=== PATIENT | male | born 1960 | race Caucasian/White ===

== ENCOUNTER 2018-10-23 21:16 | Outpatient (REF) | payer MEDICARE, SELFPAY ==
[2018-10-23 21:41] LABS: Anion Gap 6.9 mmol/L (3-11); BUN 21 mg/dL (7-18); CO2 29.1 mmol/L (21.0-32.0); CREATININE 0.99 mg/dL (0.70-1.30); Calcium 9.1 mg/dL (8.5-10.1); Chloride 105 mmol/L (98-107); Glucose 113 mg/dL (70-100); Potassium 5.1 mmol/L (3.5-5.1); Sodium 141 mmol/L (136-145)
== END 2018-10-23 21:36 ==
LOC: NCHCN 21:16
PROVIDERS: PCP Family Medicine; Visit Provider Family Medicine
DX: I10 Essential (primary) hypertension (principal)
CPT/HCPCS: 80048

== ENCOUNTER 2019-06-12 20:45 | Outpatient (REF) | payer MEDICARE, SELFPAY ==
[2019-06-16 07:10] LABS: O-desmethyltramadol 5974 ng/mL (Cutoff:25)
[2019-06-17 11:27] LABS: Fentanyl Interpretation Positive.; Fentanyl by LC-MS/MS 23.4 ng/mL; Norfentanyl by LC-MS/MS 383.5 ng/mL
== END 2019-06-12 21:05 ==
LOC: NCHCN 20:45
PROVIDERS: PCP Family Medicine; Visit Provider Family Medicine
DX: F11.20 Opioid dependence, uncomplicated (principal)
CPT/HCPCS: 80373; 80354

== ENCOUNTER 2021-02-20 21:57 | Outpatient (REF) | payer MEDICARE, SELFPAY ==
[2021-02-20 22:01] LABS: HCT 37.9 % (40.0-50.0); HGB 11.5 g/dL (13.5-17.5); MCH 24.6 pg (27.0-33.0); MCHC 30.3 % (32.0-36.0); RBC 4.68 10^6/uL (4.36-5.78); RDW 18.8 % (11.8-14.1); RDW-SD 56.3 fL; WBC 4.75 10^3/uL (4.4-10.8)
[2021-02-20 22:18] LABS: ALT 161 U/L (16-63); AST 129 U/L (15-37); Albumin 3.3 g/dL (3.4-5.0); Alkaline Phosphatase 135 U/L (46-116); Anion Gap 6.8 mmol/L (3-11); BUN 17 mg/dL (7-18); Bilirubin, Total 0.5 mg/dL (0.2-1.0); CO2 28.2 mmol/L (21.0-32.0); CREATININE 1.2 mg/dL (0.70-1.30); Calcium 8.6 mg/dL (8.5-10.1); Chloride 105 mmol/L (98-107); Glucose 107 mg/dL (74-106); Potassium 4.1 mmol/L (3.5-5.1); Sodium 140 mmol/L (136-145); TSH (W/Ref FT4) 3.18 uIU/mL (0.36-3.74); Total Protein 7.8 g/dL (6.4-8.2)
== END 2021-02-20 21:58 | disposition home or self-care (01) ==
LOC: NCHCN 21:57
PROVIDERS: PCP Family Medicine; Visit Provider Nurse Practitioner Family
DX: R00.2 Palpitations (principal)
CPT/HCPCS: 80053; 85027; 83735; 84443

== ENCOUNTER 2021-02-23 22:23 | Outpatient (REF) | payer MEDICARE, SELFPAY ==
[2021-02-27 11:11] LABS: Lyme Ab w Rflx to Lyme Confirm Negative (Negative)
[2021-02-28 13:57] LABS: Anaplasma phagocytophilum Negative (Negative); B. miyamotoi PCR Negative (Negative); Babesia divergens/MO-1 Negative (Negative); Babesia duncani Negative (Negative); Babesia microti Negative (Negative); Ehrlichia chaffeensis Negative (Negative); Ehrlichia ewingii/canis Negative (Negative); Ehrlichia muris eauclairensis Negative (Negative)
== END 2021-02-23 22:24 | disposition home or self-care (01) ==
LOC: NCHCN 22:23
PROVIDERS: PCP Family Medicine; Visit Provider Family Medicine
DX: R79.89 Other specified abnormal findings of blood chemistry (principal); D64.9 Anemia, unspecified
CPT/HCPCS: 87798; 86618

== ENCOUNTER 2021-12-26 10:34 | Outpatient (REF) | payer MEDICARE, SELFPAY ==
[2021-12-26 14:56] LABS: HCT 35.1 % (40.0-50.0); HGB 11.5 g/dL (13.5-17.5); MCHC 32.8 % (32.0-36.0); MCV 89 fL (80-95); MPV 11.5 fL (8.0-11.0); RBC 3.96 10^6/uL (4.36-5.78); RDW 15.9 % (11.8-14.1); RDW-SD 52.6 fL; WBC 3.88 10^3/uL (4.4-10.8)
[2021-12-26 15:16] LABS: Platelet Count 102 10^3/uL (130-400)
[2021-12-26 15:51] LABS: ALT 212 U/L (16-63); AST 200 U/L (15-37); Alkaline Phosphatase 154 U/L (46-116); Bilirubin, Direct 0.2 mg/dL (0.0-0.2); Bilirubin, Total 0.5 mg/dL (0.2-1.0); Total Protein 7.3 g/dL (6.4-8.2)
== END 2021-12-26 10:35 | disposition home or self-care (01) ==
LOC: NCHCN 10:34
PROVIDERS: PCP Family Medicine; Visit Provider Family Medicine
DX: D64.9 Anemia, unspecified (principal); R79.89 Other specified abnormal findings of blood chemistry; R00.8 Other abnormalities of heart beat
CPT/HCPCS: 80076; 85027

== ENCOUNTER 2022-01-01 16:36 | Outpatient (REF) | payer MEDICARE, SELFPAY ==
[2022-01-01 16:36] LABS: Abs Immature Grans 0.01 10^3/uL (0.0-0.06); Absolute Basophil Count 0.05 10^3/uL (0.0-0.2); Absolute Eosinophil Count 0.26 10^3/uL (0.0-0.7); Absolute Lymphocyte Count 1.06 10^3/uL (1.2-3.4); Absolute Monocyte Count 0.46 10^3/uL (0.1-0.8); Absolute Neutrophil Count 2.78 10^3/uL (1.2-6.7); Basophils % 1.1; Eosinophils % 5.6; HCT 40.8 % (40.0-50.0); HGB 13.2 g/dL (13.5-17.5); Immature Grans % 0.2; Lymphocytes % 22.9; MCH 28.9 pg (27.0-33.0); MCHC 32.4 % (32.0-36.0); MCV 90 fL (80-95); MPV 12.4 fL (8.0-11.0); Neutrophils % 60.2; Platelet Count 143 10^3/uL (130-400); RBC 4.56 10^6/uL (4.36-5.78); RDW 15.9 % (11.8-14.1); RDW-SD 52.5 fL; WBC 4.62 10^3/uL (4.4-10.8)
[2022-01-01 18:45] LABS: ALT 277 U/L (16-63); AST 261 U/L (15-37); Albumin 3.3 g/dL (3.4-5.0); Alkaline Phosphatase 160 U/L (46-116); Anion Gap 8.3 mmol/L (3-11); BUN 22 mg/dL (7-18); Bilirubin, Direct 0.3 mg/dL (0.0-0.2); Bilirubin, Total 0.7 mg/dL (0.2-1.0); CO2 26.7 mmol/L (21.0-32.0); CREATININE 1.3 mg/dL (0.70-1.30); Chloride 104 mmol/L (98-107); Estimated GFR 62.11 (mL/min/1.73m2); Glucose 119 mg/dL (74-106); LDH 285 U/L (85-227); Potassium 4.3 mmol/L (3.5-5.1); Sodium 139 mmol/L (136-145)
== END 2022-01-01 16:37 | disposition home or self-care (01) ==
LOC: NCHCN 16:36
PROVIDERS: PCP Family Medicine; Visit Provider Family Medicine
DX: R79.89 Other specified abnormal findings of blood chemistry (principal); D64.9 Anemia, unspecified; R00.8 Other abnormalities of heart beat
CPT/HCPCS: 80048; 80076; 85027; 83615; 85007

== ENCOUNTER 2022-01-02 15:08 | Outpatient (REF) | payer MEDICARE, SELFPAY ==
[2022-01-03 13:21] LABS: Albumin 47.7 % (55.8-66.1); Albumin g/dL 3.7 g/dL (3.6-5.2); Comment (See Note); Total Protein 7.7 g/dL (6.3-8.2)
[2022-01-03 14:44] LABS: Albumin, Urine % 10.2 %; Albumin, Urine mg/dL <1 mg/dL; Globulins, Urine % 89.8 %; Globulins, Urine mg/dL <4 mg/dL; Immunotyping, Urine (See Note); Total Protein Urine <5 mg/dL (See Note)
[2022-01-05 15:22] LABS: Immunotyping, Serum (See Note)
== END 2022-01-02 15:09 | disposition home or self-care (01) ==
LOC: NCHCN 15:08
PROVIDERS: PCP Family Medicine; Visit Provider Family Medicine
DX: R79.89 Other specified abnormal findings of blood chemistry (principal)
CPT/HCPCS: 84156; 84166; 86335; 84165; 86320

== ENCOUNTER 2024-05-11 15:17 | Outpatient (REF) | payer BC, MEDICARE, SELFPAY ==
--- NOTE | 2024-05-11 11:30 | SKI_PTH ---
PATIENT: Roland Buckley JR LOC: [facility] U#:[id number] AGE/SX: 63/M ROOM: RE05/11/[address]: Elana Stokes : 1960 BED: DIS: 05/11/2024 SPEC #: [id number] RECD: 05/12/24 12:39 STATUS: GABRIEL REYury #: [id number] DANIELLE: 05/11/24 11:[address]: Elana Stokes DEPT: Surgical Specimen RECD BY: Christal Monte ENTERED: 05/12/24 12:39 SP TYPE: YAKELIN HARRIS DR: Hien Ng Tissues: 1 - SKIN BIOPSY(SHAVE/PUNCH) Procedures: SKIN LEVEL 4 Comments: [id number]
== END 2024-05-11 15:18 | disposition home or self-care (01) ==
LOC: NCHCN 15:17
PROVIDERS: PCP Family Medicine; Visit Provider Family Medicine
DX: L82.1 Other seborrheic keratosis (principal)
CPT/HCPCS: 88305